=== PATIENT | female | born 1960 | race African-American/Black ===

== ENCOUNTER → 2017-02-03 | Outpatient (CLI) | payer OTHER ==
--- NOTE | 2017-02-03 13:10 | RAD ---
DATE: 02/03/2017 EXAM: DIGITAL SCREEN BILAT W/CAD HISTORY: Screening study. COMPARISON: 01/31/2016 and 01/17/2015 This examination was reviewed with the aid of computer-aided detection. The breast parenchyma shows scattered fibroglandular densities. Breast parenchyma level B. FINDINGS: Digital MLO and CC mammograms of both breasts were obtained. Comparison study is dated 01/31/2016 and 01/17/2015. The breast parenchyma is composed of scattered fibroglandular densities which can obscure a lesion on mammography (breast density code B). No spiculated mass is seen. No malignant appearing calcification or area of architectural distortion is noted. Since the previous examination has been no significant interval change. IMPRESSION: BI-RADS Category 1, negative. There is no mammographic evidence of malignancy. Routine yearly screening mammography is recommended for follow-up. BI-RADS CATEGORY: 1 NEGATIVE RECOMMENDED FOLLOW-UP: 12M 12 MONTH FOLLOW-UP PQRS compliance statement: Patient information was entered into a reminder system with a target due date 01/26/2018 for the next mammogram. Mammography is a sensitive method for finding small breast cancers, but it does not detect them all and is not a substitute for careful clinical examination. A negative mammogram does not negate a clinically suspicious finding and should not result in delay in biopsying a clinically suspicious abnormality. "Our facility is accredited by the [employer] Mammography Program."
== END | disposition home or self-care (01) ==
LOC: MAMMO 12:36
PROVIDERS: ATTEND Internal Medicine
DX: Z12.31 Encounter for screening mammogram for malignant neoplasm of breast (principal)
CPT/HCPCS: G0202; 77067

== ENCOUNTER 2017-10-13 18:02 | Inpatient (IN) | payer OTHER ==
[2017-10-13] MEDS: IV NORMAL SALINE 1000ML BAG 1,000 ML IV ×2 (18:45→22:28)
[2017-10-13] MEDS: MORPHINE SULFATE 4 MG/ML DISP.SYRIN. IV ×2 (18:45→20:30)
[2017-10-13 18:55] LABS: ADD MAN DIFF? NO
[2017-10-13 19:00] LABS: BASO % 1 % (0-3); EOS % 0 % (0-3); HEMATOCRIT 39.5 % (36.0-47.0); HEMOGLOBIN 13.5 g/dL (12.0-15.5); LYMPH # 1.4 x10^3/uL (1.0-4.8); LYMPH % 30 % (24-48); MEAN CORPUSCULAR HEMOGLOBIN 31 pg (25-35); MEAN CORPUSCULAR HGB CONC 34 g/dL (31-37); MEAN CORPUSCULAR VOLUME 90 fL (79-100); MONO # 0.4 x10^3/uL (0.0-1.1); MONO % 8 % (0-9); NEUT # 2.9 x10^3uL (1.8-7.7); NEUT % 61 % (31-73); PLATELET COUNT 321 x10^3/uL (140-400); RED BLOOD COUNT 4.38 x10^6/uL (3.50-5.40); RED CELL DISTRIBUTION WIDTH 13.1 % (11.5-14.5); WHITE BLOOD COUNT 4.7 x10^3/uL (4.0-11.0)
[2017-10-13 19:09] LABS: ANION GAP 9 (6-14); BLOOD UREA NITROGEN 11 mg/dL (7-20); BUN/CREATININE RATIO 16 (6-20); CALCIUM 9.2 mg/dL (8.5-10.1); CARBON DIOXIDE 28 mmol/L (21-32); CHLORIDE 108 mmol/L (98-107); CREATININE 0.7 mg/dL (0.6-1.0); GFR 104.7; GLUCOSE 106 mg/dL (70-99); SODIUM 145 mmol/L (136-145)
[2017-10-13 19:15] LABS: ALBUMIN 3.5 g/dL (3.4-5.0); ALK PHOS 169 U/L (46-116); ALT (SGPT) 465 U/L (14-59); AMYLASE 40 U/L (25-115); AST (SGOT) 524 U/L (15-37); LIPASE 109 U/L (73-393); TOTAL BILIRUBIN 1.3 mg/dL (0.2-1.0)
[2017-10-13] MEDS: IOHEXOL 300 MG/ML 100ML VIAL. IV ×2 (19:15→20:15)
[2017-10-13] MEDS: IOHEXOL 240 MG/ML 50ML VIAL. PO (19:15)
[2017-10-13] MEDS ORDERED: CONTRAST GIVEN MC (19:30)
[2017-10-13] MEDS ORDERED: ONDANSETRON PF 4 MG/2 ML VIAL. IV (21:15)
[2017-10-14 04:15] LABS: ADD MAN DIFF? NO
[2017-10-14 04:19] LABS: BASO % 0 % (0-3); EOS # 0.1 x10^3/uL (0.0-0.7); EOS % 2 % (0-3); HEMATOCRIT 35.4 % (36.0-47.0); HEMOGLOBIN 12.2 g/dL (12.0-15.5); LYMPH # 1.7 x10^3/uL (1.0-4.8); LYMPH % 47 % (24-48); MEAN CORPUSCULAR HEMOGLOBIN 31 pg (25-35); MEAN CORPUSCULAR HGB CONC 34 g/dL (31-37); MEAN CORPUSCULAR VOLUME 90 fL (79-100); MONO # 0.2 x10^3/uL (0.0-1.1); MONO % 7 % (0-9); NEUT # 1.6 x10^3uL (1.8-7.7); NEUT % 44 % (31-73); PLATELET COUNT 266 x10^3/uL (140-400); RED BLOOD COUNT 3.93 x10^6/uL (3.50-5.40); RED CELL DISTRIBUTION WIDTH 13.4 % (11.5-14.5); WHITE BLOOD COUNT 3.6 x10^3/uL (4.0-11.0)
[2017-10-14 04:39] LABS: ANION GAP 8 (6-14); BLOOD UREA NITROGEN 8 mg/dL (7-20); CALCIUM 8.9 mg/dL (8.5-10.1); CARBON DIOXIDE 27 mmol/L (21-32); CHLORIDE 110 mmol/L (98-107); CREATININE 0.7 mg/dL (0.6-1.0); GFR 104.7; GLUCOSE 102 mg/dL (70-99); POTASSIUM 3.8 mmol/L (3.5-5.1); SODIUM 145 mmol/L (136-145)
[2017-10-14] MEDS: MORPHINE SULFATE 4 MG/ML DISP.SYRIN. IV ×2 (05:51→20:33)
[2017-10-14] MEDS: IV NORMAL SALINE 1000ML BAG 1,000 ML IV ×3 (05:53→23:30)
[2017-10-14] MEDS: IV RINGERS,LACTATED 1000ML 1,000 ML IV (09:05)
[2017-10-14] MEDS ORDERED: LIDOCAINE 1% PF 2 ML VIAL. ID (09:15)
[2017-10-14] MEDS ORDERED: ONDANSETRON PF 4 MG/2 ML VIAL. IV ×2 (09:15→23:30)
[2017-10-14] MEDS ORDERED: MORPHINE SULFATE 4 MG/ML DISP.SYRIN. IV (09:15)
[2017-10-14] MEDS ORDERED: fentaNYL PF VIAL 100 MCG/2 ML VIAL IV (09:15)
[2017-10-14] MEDS ORDERED: DEXAMETHASONE SOD PHOS 20 MG/5 ML VIAL. (10:55)
[2017-10-14] MEDS ORDERED: LIDOCAINE 2% PF Vial for OR 5 ML VIAL. (10:55)
[2017-10-14] MEDS ORDERED: PROPOFOL 20 ML IV ×2 (10:55→12:52)
[2017-10-14] MEDS ORDERED: fentaNYL PF VIAL 100 MCG/2 ML VIAL ×3 (10:56→14:30)
[2017-10-14] MEDS ORDERED: MIDAZOLAM HCL/PF 2 MG/2 ML VIAL. (10:56)
[2017-10-14] MEDS ORDERED: ROCURONIUM 50 MG/5 ML VIAL. (10:56)
[2017-10-14] MEDS ORDERED: FAMOTIDINE 20 MG/2 ML VIAL (12:59)
[2017-10-14] MEDS: BUPIVACAINE-EPI 0.25%-1:200000 50 ML VIAL. (13:01)
[2017-10-14] MEDS: IOHEXOL 300 MG/ML 100ML VIAL. (13:03)
[2017-10-14] MEDS: GLUCAGON,HUMAN RECOMBINANT 1 MG/ML VIAL. (13:10)
[2017-10-14] MEDS ORDERED: KETOROLAC 30 MG/ML INJ FOR OR. INJ (13:20)
[2017-10-14] MEDS ORDERED: NEOSTIGMINE METHYLSULFATE 5 MG/5 ML SYRINGE. (13:20)
[2017-10-14] MEDS ORDERED: GLYCOPYRROLATE 1 MG/5 ML VIAL. (13:21)
[2017-10-14] MEDS ORDERED: SEVOFLURANE 31 TO 60 MINUTES. IH (13:30)
[2017-10-14] MEDS: fentaNYL PF VIAL 100 MCG/2 ML VIAL IV ×2 (14:36→17:06)
[2017-10-14] MEDS ORDERED: PROCHLORPERAZINE 10 MG/2 ML VIAL. (14:37)
[2017-10-14] MEDS: PROCHLORPERAZINE 10 MG/2 ML VIAL. IV (14:40)
[2017-10-14] MEDS: PANTOPRAZOLE IV PUSH 40 MG VIAL. IVP (18:02)
[2017-10-15 05:34] LABS: ADD MAN DIFF? NO
[2017-10-15 05:43] LABS: BASO % 0 % (0-3); EOS % 1 % (0-3); HEMATOCRIT 35.6 % (36.0-47.0); HEMOGLOBIN 12.2 g/dL (12.0-15.5); LYMPH # 1.1 x10^3/uL (1.0-4.8); LYMPH % 20 % (24-48); MEAN CORPUSCULAR HEMOGLOBIN 31 pg (25-35); MEAN CORPUSCULAR HGB CONC 34 g/dL (31-37); MEAN CORPUSCULAR VOLUME 90 fL (79-100); MONO # 0.5 x10^3/uL (0.0-1.1); MONO % 9 % (0-9); NEUT % 70 % (31-73); PLATELET COUNT 250 x10^3/uL (140-400); RED BLOOD COUNT 3.94 x10^6/uL (3.50-5.40); RED CELL DISTRIBUTION WIDTH 13.5 % (11.5-14.5); WHITE BLOOD COUNT 5.7 x10^3/uL (4.0-11.0)
[2017-10-15 06:07] LABS: ALBUMIN 2.9 g/dL (3.4-5.0); ALK PHOS 162 U/L (46-116); ALT (SGPT) 263 U/L (14-59); ANION GAP 10 (6-14); AST (SGOT) 132 U/L (15-37); BLOOD UREA NITROGEN 8 mg/dL (7-20); BUN/CREATININE RATIO 10 (6-20); CALCIUM 8.5 mg/dL (8.5-10.1); CARBON DIOXIDE 24 mmol/L (21-32); CHLORIDE 109 mmol/L (98-107); CREATININE 0.8 mg/dL (0.6-1.0); GFR 89.8; GLUCOSE 91 mg/dL (70-99); SODIUM 143 mmol/L (136-145); TOTAL BILIRUBIN 5.7 mg/dL (0.2-1.0); TOTAL PROTEIN 5.8 g/dL (6.4-8.2)
[2017-10-15 06:11] LABS: INR 1.1 (0.8-1.1); PROTHROMBIN TIME PATIENT 13.9 SEC (11.7-14.0)
[2017-10-15] MEDS: PANTOPRAZOLE IV PUSH 40 MG VIAL. IVP (06:21)
[2017-10-15] MEDS: MORPHINE SULFATE 4 MG/ML DISP.SYRIN. IV ×3 (08:52→22:44)
[2017-10-15] MEDS ORDERED: LIDOCAINE 1% PF 2 ML VIAL. ID (09:15)
[2017-10-15] MEDS ORDERED: MORPHINE SULFATE 2 MG/ML DISP.SYRIN. IV (09:15)
[2017-10-15] MEDS ORDERED: PROCHLORPERAZINE 10 MG/2 ML VIAL. IV (09:15)
[2017-10-15] MEDS ORDERED: ONDANSETRON PF 4 MG/2 ML VIAL. IV (09:15)
[2017-10-15] MEDS ORDERED: fentaNYL PF VIAL 100 MCG/2 ML VIAL IV ×2 (09:15)
[2017-10-15] MEDS ORDERED: MIDAZOLAM HCL/PF 5 MG/5 ML VIAL. (16:50)
[2017-10-15] MEDS ORDERED: diphenhydrAMINE 50 MG/ML VIAL (16:50)
[2017-10-15] MEDS ORDERED: MEPERIDINE PF 25 MG/ML VIAL. (16:50)
[2017-10-15] MEDS: diphenhydrAMINE 50 MG/ML VIAL IV (16:59)
[2017-10-15] MEDS ORDERED: IOHEXOL 300 MG/ML 100ML VIAL. (16:59)
[2017-10-15] MEDS: IV RINGERS,LACTATED 1000ML 1,000 ML IV (17:00)
[2017-10-15] MEDS: MIDAZOLAM HCL/PF 5 MG/5 ML VIAL. IV ×4 (17:02→17:26)
[2017-10-15] MEDS: MEPERIDINE PF 25 MG/ML VIAL. IV ×4 (17:02→17:26)
[2017-10-15] MEDS: IOHEXOL 300 MG/ML 100ML VIAL. IV (17:15)
[2017-10-16 04:43] LABS: ALBUMIN 2.9 g/dL (3.4-5.0); ALK PHOS 172 U/L (46-116); ALT (SGPT) 195 U/L (14-59); AMYLASE 83 U/L (25-115); ANION GAP 9 (6-14); AST (SGOT) 81 U/L (15-37); BLOOD UREA NITROGEN 7 mg/dL (7-20); BUN/CREATININE RATIO 10 (6-20); CALCIUM 8.6 mg/dL (8.5-10.1); CARBON DIOXIDE 26 mmol/L (21-32); CHLORIDE 106 mmol/L (98-107); CREATININE 0.7 mg/dL (0.6-1.0); GFR 104.7; GLUCOSE 108 mg/dL (70-99); LIPASE 334 U/L (73-393); POTASSIUM 3.7 mmol/L (3.5-5.1); SODIUM 141 mmol/L (136-145); TOTAL BILIRUBIN 5.4 mg/dL (0.2-1.0); TOTAL PROTEIN 5.8 g/dL (6.4-8.2)
[2017-10-16] MEDS: PANTOPRAZOLE IV PUSH 40 MG VIAL. IVP (08:00)
== END 2017-10-16 13:50 | disposition home or self-care (01) | DRG 419 ==
LOC: 4 NORTH 22:06 → ER 18:02 → 4 NORTH 21:00
PROC: 0FT44ZZ Resection of Gallbladder, Percutaneous Endoscopic Approach (ICD-10-PCS; principal; 2017-10-14 12:27)
PROC: BF141ZZ Fluoroscopy of Gallbladder, Bile Ducts and Pancreatic Ducts using Low Osmolar Contrast (ICD-10-PCS; 2017-10-14 12:27)
PROC: 0FJB8ZZ Inspection of Hepatobiliary Duct, Via Natural or Artificial Opening Endoscopic (ICD-10-PCS; 2017-10-14 12:27)
PROC: 0FC98ZZ Extirpation of Matter from Common Bile Duct, Via Natural or Artificial Opening Endoscopic (ICD-10-PCS; 2017-10-14 12:27)
DX: K80.62 Calculus of gallbladder and bile duct with acute cholecystitis without obstruction (principal); N28.1 Cyst of kidney, acquired; K21.9 Gastro-esophageal reflux disease without esophagitis; M19.90 Unspecified osteoarthritis, unspecified site; E66.9 Obesity, unspecified; Z98.51 Tubal ligation status; Z88.8 Allergy status to other drugs, medicaments and biological substances; Z83.3 Family history of diabetes mellitus; Z68.33 Body mass index [BMI] 33.0-33.9, adult
CPT/HCPCS: 36415; 74177; 74300; 74328; 80048; 80053; 82150; 83690; 85025; 85610; 88304; 96361; 96374; 99285; 99285-25; C1726; C1757; C9113; J0690; J0780; J1100; J1200; J1610; J1885; J2175; J2250; J2270; J2704; J2710; J3010; J3490; J7030; J7120; Q9967; S0028

== ENCOUNTER → 2018-02-05 | Outpatient (CLI) | payer OTHER ==
[2017-10-16 11:00] VITALS: BP 135/78
[~2018-02-05] MED LIST: OMEP20TA63 PO; OXYC30TA PO
--- NOTE | 2018-02-05 12:58 | RAD ---
DATE: 02/05/2018 EXAM: DIGITAL SCREEN BILAT W/CAD HISTORY: Routine screening COMPARISON: 02/03/2017 This study was interpreted with the benefit of Computerized Aided Detection (CAD). The breast parenchyma shows scattered fibroglandular densities. Breast parenchyma level B. FINDINGS: No new or enlarging breast densities are seen. No suspicious microcalcifications are evident. IMPRESSION: Stable mammograms without evidence of malignancy. BI-RADS CATEGORY: 1 NEGATIVE RECOMMENDED FOLLOW-UP: 12M 12 MONTH FOLLOW-UP PQRS compliance statement: Patient information was entered into a reminder system with a target due date for the next mammogram. Mammography is a sensitive method for finding small breast cancers, but it does not detect them all and is not a substitute for careful clinical examination. A negative mammogram does not negate a clinically suspicious finding and should not result in delay in biopsying a clinically suspicious abnormality. "Our facility is accredited by the [employer] Mammography [employer]."
== END | disposition home or self-care (01) ==
LOC: MAMMO 10:45
PROVIDERS: ATTEND Internal Medicine
DX: Z12.31 Encounter for screening mammogram for malignant neoplasm of breast (principal); K21.9 Gastro-esophageal reflux disease without esophagitis; Z88.8 Allergy status to other drugs, medicaments and biological substances; Z83.3 Family history of diabetes mellitus; Z68.33 Body mass index [BMI] 33.0-33.9, adult
CPT/HCPCS: 77067

== ENCOUNTER → 2019-02-09 | Outpatient (CLI) | payer OTHER ==
[2017-10-16 11:00] VITALS: BP 135/78
[~2019-02-09] MED LIST changes: -OXYC30TA PO; +OXYC30TA3 PO
--- NOTE | 2019-02-09 15:15 | RAD ---
DATE: 02/09/2019 EXAM: DIGITAL SCREEN BILAT W/CAD HISTORY: History of benign left breast biopsy 1989. Asymptomatic screening mammogram. COMPARISON: Prior mammogram from 02/05/2018, 02/03/2017, 01/18/2016 This study was interpreted with the benefit of Computerized Aided Detection (CAD). Breast Density: SCATTERED The breast parenchyma shows scattered fibroglandular densities. Breast parenchyma level B. FINDINGS: 2-D CC and MLO views of each breast were obtained. Right breast: There are no suspicious microcalcifications, masses or areas of architectural distortion. Left breast: There are no suspicious medical calcifications, masses or areas of architectural distortion. Bilateral mammograms compared to prior examinations and appears unchanged. IMPRESSION: Negative bilateral mammogram. BI-RADS CATEGORY: 1 NEGATIVE RECOMMENDED FOLLOW-UP: 12M 12 MONTH FOLLOW-UP PQRS compliance statement: Patient information was entered into a reminder system with a target due date 02/10/2020 for the next mammogram. Mammography is a sensitive method for finding small breast cancers, but it does not detect them all and is not a substitute for careful clinical examination. A negative mammogram does not negate a clinically suspicious finding and should not result in delay in biopsying a clinically suspicious abnormality. "Our facility is accredited by the [employer] Mammography Program."
== END | disposition home or self-care (01) ==
LOC: MAMMO 12:10
PROVIDERS: ATTEND Family Medicine
DX: Z12.31 Encounter for screening mammogram for malignant neoplasm of breast (principal); N64.89 Other specified disorders of breast
CPT/HCPCS: 77067

== ENCOUNTER → 2019-07-12 | Outpatient (CLI) | payer OTHER ==
[2017-10-16 11:00] VITALS: BP 135/78
[~2019-07-12] MED LIST changes: +ACET500T68 PO; +CHOL200078 PO; +CYAN25008 PO; +MULT-647 PO; +MULT1TAB52 PO; +NAPR220T70 PO
[2019-07-12 09:33] LABS: BASO % 0 % (0-3); EOS # 0.1 x10^3/uL (0.0-0.7); EOS % 2 % (0-3); HEMOGLOBIN 13.1 g/dL (12.0-15.5); LYMPH # 1.8 x10^3/uL (1.0-4.8); LYMPH % 32 % (24-48); MEAN CORPUSCULAR HEMOGLOBIN 31 pg (25-35); MEAN CORPUSCULAR HGB CONC 34 g/dL (31-37); MEAN CORPUSCULAR VOLUME 91 fL (79-100); MONO # 0.3 x10^3/uL (0.0-1.1); MONO % 5 % (0-9); NEUT # 3.5 x10^3/uL (1.8-7.7); NEUT % 62 % (31-73); PLATELET COUNT 332 x10^3/uL (140-400); RED BLOOD COUNT 4.27 x10^6/uL (3.50-5.40); RED CELL DISTRIBUTION WIDTH 14.7 % (11.5-14.5); WHITE BLOOD COUNT 5.7 x10^3/uL (4.0-11.0)
[2019-07-12 09:47] LABS: PROTHROMBIN TIME PATIENT 12.7 SEC (11.7-14.0)
[2019-07-12 09:56] LABS: CALCIUM 9.6 mg/dL (8.5-10.1); CREATININE 0.7 mg/dL (0.6-1.0)
--- NOTE | 2019-07-12 13:22 | EKG ---
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
--- NOTE | 2019-07-12 15:43 | RAD ---
AP and Lateral Views of the Chest 07/12/2019 9:09 AM Indication: Preoperative Comparison: None Findings: There is no focal consolidation or infiltrate identified. The cardiomediastinal silhouette is within normal limits. There is no evidence of pneumothorax or pleural effusion. No acute osseous abnormalities are identified. Prior cholecystectomy noted. Impression: No evidence of acute cardiopulmonary process. Electronically signed by: Ajit Casas MD (07/12/2019 3:40 PM) [id number]
== END | disposition home or self-care (01) ==
LOC: SURGPAT 12:58
PROVIDERS: ATTEND Orthopaedic Surgery
DX: Z01.818 Encounter for other preprocedural examination (principal); R94.31 Abnormal electrocardiogram [ECG] [EKG]; M16.12 Unilateral primary osteoarthritis, left hip
CPT/HCPCS: 36415; 71046; 80048; 82040; 82306; 85025; 85610; 85651; 85730; 87641; 93005

== ENCOUNTER → 2019-12-08 | Outpatient (CLI) | payer OTHER ==
[2019-07-30 06:00] VITALS: BP 103/61
[~2019-12-08] MED LIST changes: +ACET325T9 PO; +ASCO500C PO; +LACT1CAP2 PO; +MILK1TAB PO; +MULT-445 PO; -MULT1TAB52 PO; +OXYC5CAP PO; +WARF5TAB2 PO; +WARF7.5T48 PO
[2019-12-08 13:57] LABS: BASO % 1 % (0-3); EOS # 0.1 x10^3/uL (0.0-0.7); EOS % 1 % (0-3); HEMATOCRIT 38.5 % (36.0-47.0); HEMOGLOBIN 12.9 g/dL (12.0-15.5); LYMPH # 2.2 x10^3/uL (1.0-4.8); LYMPH % 48 % (24-48); MEAN CORPUSCULAR HEMOGLOBIN 30 pg (25-35); MEAN CORPUSCULAR HGB CONC 34 g/dL (31-37); MEAN CORPUSCULAR VOLUME 90 fL (79-100); MONO # 0.3 x10^3/uL (0.0-1.1); MONO % 6 % (0-9); NEUT % 43 % (31-73); PLATELET COUNT 309 x10^3/uL (140-400); RED BLOOD COUNT 4.26 x10^6/uL (3.50-5.40); RED CELL DISTRIBUTION WIDTH 15.6 % (11.5-14.5); WHITE BLOOD COUNT 4.7 x10^3/uL (4.0-11.0)
[2019-12-08 14:00] LABS: ALBUMIN 3.9 g/dL (3.4-5.0); C-REACTIVE PROTEIN 2.9 mg/L (0-3.3); CALCIUM 9.1 mg/dL (8.5-10.1); CREATININE 0.7 mg/dL (0.6-1.0); GFR 103.6; POTASSIUM 4.1 mmol/L (3.5-5.1)
[2019-12-08 14:06] LABS: PROTHROMBIN TIME PATIENT 12.9 SEC (11.7-14.0)
[2019-12-09 02:08] LABS: HEMOGLOBIN A1C 5.5 % (4.8-5.6)
== END | disposition home or self-care (01) ==
LOC: SURGPAT 12:49
PROVIDERS: ATTEND Orthopaedic Surgery
DX: Z01.818 Encounter for other preprocedural examination (principal); Z11.59 Encounter for screening for other viral diseases; M16.11 Unilateral primary osteoarthritis, right hip
CPT/HCPCS: 36415; 80048; 82040; 82306; 83036; 85025; 85610; 85730; 86140; 87641; U0003

== ENCOUNTER 2019-12-14 07:56 | Observation (INO) | payer OTHER ==
[~2019-12-14] VITALS: Ht 162.6 cm; Wt 84.4 kg
[2019-12-14] VITALS (8 sets, daily range): BP systolic 106–123; BP diastolic 55–69
[~2019-12-14 07:56] MED LIST changes: +DEXAMETHASONE SOD PHOS 20 MG/5 ML VIAL. ONE; +GABAPENTIN 300 MG CAPSULE. PO PRN; +IV RINGERS,LACTATED 1000ML 1,000 ML IV SCH; +LIDOCAINE 2% PF 5 ML VIAL. ONE; +MELOXICAM 7.5 MG TABLET PO PRN; +MORPHINE SULFATE 5 MG, KETOROLAC 30MG VIAL 30 MG, ROPIVacaine 0.5% PF 60 ML, EPINEPHrin... INT ART ONE; +ONDANSETRON PF 4 MG/2 ML VIAL. IV PRN; +ONDANSETRON PF 4 MG/2 ML VIAL. ONE; +PROCHLORPERAZINE 10 MG/2 ML VIAL. IV PRN; +PROPOFOL 10 MG/ML (20ML) VIAL. IV ONE; +ROCURONIUM 50 MG/5 ML VIAL. ONE; +TRANEXAMIC ACID 1,000 MG in IV NORMAL SALINE 50ML 50 ML INJ ONE; -WARF7.5T48 PO
[2019-12-14] MEDS ORDERED: TRANEXAMIC ACID 1,000 MG in IV NORMAL SALINE 50ML 50 ML INJ ONE (08:00)
[2019-12-14] MEDS ORDERED: ACETAMINOPHEN 500 MG TABLET PO ONE (08:30)
[2019-12-14 08:53] LABS: PROTHROMBIN TIME PATIENT 12.3 SEC (11.7-14.0)
[2019-12-14] MEDS ORDERED: fentaNYL PF VIAL 250 MCG/5 ML VIAL ONE (09:28)
[2019-12-14] MEDS ORDERED: SEVOFLURANE > 120 MINUTES. IH ONE (09:28)
[2019-12-14] MEDS: IV NORMAL SALINE 1000ML BAG 1,000 ML IV SCH (10:05)
[2019-12-14] MEDS ORDERED: diphenhydrAMINE 50 MG/ML VIAL IVP PRN (10:15)
[2019-12-14] MEDS ORDERED: fentaNYL PF VIAL 100 MCG/2 ML VIAL IVP PRN (10:15)
[2019-12-14] MEDS ORDERED: DEXTROSE 50% 25 GM / 50ML DISP.SYRIN. IV PRN (10:15)
[2019-12-14] MEDS ORDERED: MORPHINE SULFATE 2 MG/ML VIAL. IVP PRN (10:15)
[2019-12-14] MEDS ORDERED: PROCHLORPERAZINE 5 MG TABLET. PO PRN (10:15)
[2019-12-14] MEDS ORDERED: 0.9 % SODIUM CHLORIDE 10 ML DISP.SYRIN. IV PRN (10:15)
[2019-12-14] MEDS ORDERED: ZOLPIDEM 5 MG TABLET. PO PRN (10:15)
[2019-12-14] MEDS ORDERED: CALCIUM CARBONATE 500 MG TAB.CHEW PO PRN (10:15)
[2019-12-14] MEDS ORDERED: NEOSTIGMINE METHYLSULFATE 5 MG/5 ML SYRINGE. ONE (11:08)
[2019-12-14] MEDS ORDERED: GLYCOPYRROLATE 1 MG/5 ML VIAL. ONE (11:08)
--- NOTE | 2019-12-14 11:34 | PDOC4 ---
Operative Note Operative Note Date of surgery: 12/14/2019 Preoperative diagnosis: Degenerative joint disease right hip Postoperative diagnosis: Same Operative procedure: Right total hip arthroplasty Surgeon: Krishna Disc Pad Grinding Machine Feeder: Kalpana snyder Anesthesia: General Estimated blood loss 200 cc Complications: None Drains: Hemovac drain and intra-articular catheter right hip Operative indications: Please see my dictated orthopedic clinic note for detailed operative indications and note that we had covered the possible risk factors including premature wear or loosening infection nerve or blood vessel damage instability medical or other anesthetic complications among others all her questions were answered she wants to proceed with surgical evaluation and treatment having given informed consent Operative text: Patient was identified procedure verified patient placed in the supine position on the operating table. After adequate amounts of general anesthesia were administered she was placed in the decubitus position using the Stulberg hip positioner and positioned right side up with all bony prominences well-padded. The right hip was then prepped and draped in standard sterile fashion and after timeout was performed patient procedure identified and verified a curvilinear incision was made over the right hip greater trochanter dissection carried out down to the iliotibial band and gluteal fascia which were split in line with their fibers a Charnley retractor was placed external rotators were divided from their insertion and hip capsule was split in a T fashion hip was dislocated and cut using the cutting guide to establish a templated calcar cut the femoral head was denuded of cartilage completely the acetabulum was exposed and contents of the fovea and labrum were degraded and excised. Reaming was carried out up to a size 55 with a 56 cluster hole stick- type coated [employer] hemispherical cup impacted into place in proper version using the alignment guide and a single fixation screw placed superiorly. A 40 mm inner diameter standard liner was impacted into place and the femur was prepared with a box osteotome and reaming broaching carried out up to a size 13 where a -4 trial overall restored her leg length offset and gave her excellent stability with full range of motion. Trial stem components were removed irrigation carried out normal saline solution and a standard offset synergy porous coated size 13 femoral stem was impacted into place in proper version and equivalent trialing carried out and therefore a Oxinium 40 mm head with -4 neck length was impacted to engage the Contreras taper and reduced found to be stable to about 70 degrees internal rotation at 90 degrees hip flexion's irrigation again carried out normal saline solution hip capsule and external rotators were repaired with #5 Ethibond suture Hemovac drain and pain catheter were placed pain catheter mixture was injected throughout the joint and fascial closure accomplished with #2 Ethibond suture in interrupted fashion reinforced with #1 PDS strata fix suture subcutaneous closure with buried Vicryl and skin closure with subcuticular strata fix Monocryl. Jace dressing and Acticoat were placed patient was returned to recovery room in stable condition having tolerated the procedure well. Kalpana omalley assist was present for the procedure and assisted in the patient positioning prepping draping retraction closure and dressings PABLO MICHELLE MD Dec 14, 2019 11:34
[2019-12-14] MEDS ORDERED: MORPHINE SULFATE 4 MG/ML VIAL. IV PRN (11:45)
[2019-12-14] MEDS ORDERED: PROCHLORPERAZINE 10 MG/2 ML VIAL. IV PRN (11:45)
[2019-12-14] MEDS ORDERED: fentaNYL PF VIAL 100 MCG/2 ML VIAL IV PRN (11:45)
[2019-12-14] MEDS ORDERED: MORPHINE SULFATE 2 MG/ML VIAL. IV PRN (11:45)
[2019-12-14] MEDS: ONDANSETRON PF 4 MG/2 ML VIAL. IVP SCH ×2 (12:00→17:03)
[2019-12-14] MEDS: ONDANSETRON ODT 4 MG TAB.RAPDIS. PO SCH ×2 (12:00→17:50)
[2019-12-14] MEDS: fentaNYL PF VIAL 100 MCG/2 ML VIAL IV PRN ×2 (12:03→12:06)
[2019-12-14] MEDS: HYDROmorphone 2 MG/ML VIAL IV PRN ×2 (12:31→13:06)
--- NOTE | 2019-12-14 13:25 | NUR ---
Arrived to unit by bed from PACU. Very drowsy awakens but falls back to sleep. Unable to carry conversation without falling asleep. Right hip dressing d/i with SOO, IAC and Hemovac drain intact. IVF's intact and infusing. GRACIA's on with TOREY on right foot and SCD on left leg. Placed O2 at 2l per n/c due O2 Sats ranging 85-88%. Side rails up x's 2 with call light in reach. Cont. monitor.
--- NOTE | 2019-12-14 13:37 | RAD ---
Right hip 2 views with one view pelvis. HISTORY: Post right hip arthroplasty Single view was taken of the pelvis. There is no pelvic fracture. There is a total joint prosthesis on the left. AP and lateral views were taken of the right hip. There is a total joint prosthesis in place. There is no acute fracture. There is a drainage tube present. IMPRESSION: 1. Operative changes from right hip arthroplasty. Electronically signed by: Castillo Varghese MD (12/14/2019 1:34 PM) [facility]
[2019-12-14] MEDS ORDERED: WARFARIN 7.5 MG TABLET. PO ONE (16:00)
[2019-12-14] MEDS: FERROUS SULFATE 325 MG TABLET. PO SCH (17:00)
[2019-12-14] MEDS: KETOROLAC 30MG VIAL 30 MG, BUPIVACAINE MPF 0.25% 20 ML, EPINEPHrine 0.5 MG in TOTAL VOL... INT ART SCH (17:45)
[2019-12-14] MEDS: oxyCODONE IR 5 MG TABLET PO PRN (22:42)
[2019-12-15] MEDS: oxyCODONE IR 5 MG TABLET PO PRN ×3 (02:11→11:06)
[2019-12-15 02:46] VITALS: BP 113/54
[2019-12-15] MEDS: KETOROLAC 30MG VIAL 30 MG, BUPIVACAINE MPF 0.25% 20 ML, EPINEPHrine 0.5 MG in TOTAL VOL... INT ART SCH (04:58)
[2019-12-15 05:17] LABS: PROTHROMBIN TIME PATIENT 14.9 SEC (11.7-14.0)
[2019-12-15] MEDS: ONDANSETRON PF 4 MG/2 ML VIAL. IVP SCH ×2 (06:00)
[2019-12-15] MEDS ORDERED: MAGNESIUM HYDROXIDE 2,400 MG/30 ML ORAL.SUSP. PO PRN (06:00)
[2019-12-15] MEDS ORDERED: GABAPENTIN 100 MG CAPSULE. PO SCH (06:00)
[2019-12-15] MEDS: ONDANSETRON ODT 4 MG TAB.RAPDIS. PO SCH ×2 (06:00)
[2019-12-15] MEDS: traMADol 50 MG TABLET PO SCH ×3 (06:36→17:18)
--- NOTE | 2019-12-15 07:00 | NUR ---
awake and up in recliner. states her pain is a "6" requesting pain medication. ice applied to right hip area. she has good sensation, motion and pulses bilateral lower extremities
[2019-12-15 07:04] VITALS: BP 99/55
[2019-12-15] MEDS: ONDANSETRON ODT 4 MG TAB.RAPDIS. PO PRN ×2 (07:04→11:05)
--- NOTE | 2019-12-15 07:06 | NUR ---
Temp 99.4, encouraged IS use. Ambulated to toilet then recliner. Ultram started per protocol.
[2019-12-15] MEDS: SENNOSIDES/DOCUSATE 8.6/50MG TABLET. PO SCH (07:55)
[2019-12-15] MEDS: MELOXICAM 7.5 MG TABLET PO SCH (07:55)
[2019-12-15] MEDS: FERROUS SULFATE 325 MG TABLET. PO SCH ×2 (07:55→17:18)
[2019-12-15] MEDS: MULTIVITAMIN with MINERAL TABLET. PO SCH (07:55)
[2019-12-15] MEDS: ACETAMINOPHEN 500 MG TABLET PO SCH ×3 (07:55→20:13)
--- NOTE | 2019-12-15 08:00 | NUR ---
still states that her pain is a 6. refused other pain medication at this time. will increase oxy ir to 10 instead of 5
[2019-12-15] MEDS: IV NORMAL SALINE 1000ML BAG 1,000 ML IV SCH (10:05)
[2019-12-15 11:06] VITALS: BP 109/58
[2019-12-15] MEDS ORDERED: ONDANSETRON PF 4 MG/2 ML VIAL. IVP PRN (12:00)
--- NOTE | 2019-12-15 14:44 | NUR ---
Zofran repeated; queasy stomach. medicated with oxy 10 mg and tolerated 2nd session of therapy better. original surgical dressing removed. Hemovac and IAC (blue tip intact) removed.
--- NOTE | 2019-12-15 15:07 | NUR ---
Pharmacy Vancomycin Dosing Note S:Consulted to monitor and dose vancomycin started . O:MICHELLE HDZ is a 59 year old F with . Height: 5 feet, 4 inches Weight: 84.985045 kg [place] Body Weight: Adjusted Body Weight: Dosing Weight: Pharmacy Warfarin Dosing Note S:Pharmacy consulted to assist with anticoagulation therapy started 12/14/19 with target INR: 1.6 - 2.5 O:MICHELLE HDZ is a 59 year old F with ASAD LABS: Last INR: 1.2 Last HGB: 10.9 Last HCT: Last PLT: Last dose of 7.5 mg given on 12/14/19 at 1700 Previous Regimen: Vitamin K given: N Drug Interaction Changes: Ongoing Drug Interactions: MELOXICAM A:INR of 1.2 is below desired range. Target range for this patient is: 1.6 - 2.5 P: Warfarin dose: 5 mg Today at 1600 Bridge Therapy: None Next INR due IN AM Pharmacy anticoagulation service will continue to follow. MAX MERCADO RPH, 12/15/19 1507 Other Antibiotics: LABS: Last BUN: Last Creatinine: Creatinine Clearance: mL/min Last WBC: Last Procalcitonin: Tmax (past 24 hours): Microbiology: I/O: Drug Levels: Last level: on at Last dose given at Vancomycin Dosing: Loading Dose: x1 Dosing Weight: Target Trough: A: Based on: [] P: 1. [g RX.ACTION] Vancomycin IV 2. Follow up level on at 3. Pharmacy will continue to monitor, follow and adjust therapy as needed. MAX MERCADO RPH, 12/15/19 0113
[2019-12-15] MEDS ORDERED: BISACODYL 10 MG SUPP.RECT. PR PRN (16:00)
[2019-12-15] MEDS ORDERED: WARFARIN 5 MG TABLET. PO ONE (16:00)
[2019-12-15 18:16] VITALS: BP 104/58
--- NOTE | 2019-12-15 20:51 | PDOC ---
PROGRESS NOTES Subjective Subjective Problems overnight: Some muscle spasm in the buttock area but getting up and around well Objective Vital Signs Vital Signs Date Time Temp Pulse Resp B/P (MAP) Pulse Ox O2 Delivery O2 Flow Rate FiO2 12/15/19 20:07 Room Air 12/15/19 18:16 98.3 83 16 104/58 (73) 99 98.3 12/14/19 20:30 2.0 Physical Exam Jace dressing intact leg lengths equal distal neurovascular status intact Hemovac and pain catheter intact Labs Laboratory Tests Test 12/14/19 08:30 12/15/19 04:50 Prothrombin Time 12.3 SEC (11.7-14.0) 14.9 SEC (11.7-14.0) Prothromb Time International Ratio 1.0 (0.8-1.1) 1.2 (0.8-1.1) Activated Partial Thromboplast Time 29 SEC (24-38) Hemoglobin 10.9 g/dL (12.0-15.5) Laboratory Tests Test 12/15/19 04:50 Hemoglobin 10.9 g/dL (12.0-15.5) Prothrombin Time 14.9 SEC (11.7-14.0) Prothromb Time International Ratio 1.2 (0.8-1.1) Imaging Postop x-rays show good placement of total hip arthroplasty components and sizing with equal leg lengths and offset to contralateral hip Assessment Assessment POD#1 right total hip arthroplasty Plan Plan of Care Continue mobilize weightbearing as tolerated with standard total hip precautions Coumadin anticoagulation Justicifation of Admission Dx: Justifications for Admission: Justification of Admission Dx: Yes (Additional physical therapy for safe ambulation and transfers and pain control) PABLO MICHELLE MD Dec 15, 2019 20:51
[2019-12-15 23:00] VITALS: BP 103/63
[2019-12-16] MEDS: traMADol 50 MG TABLET PO SCH ×4 (00:12→17:26)
[2019-12-16] MEDS: ACETAMINOPHEN 500 MG TABLET PO SCH ×3 (02:50→13:54)
[2019-12-16] MEDS: oxyCODONE IR 5 MG TABLET PO PRN ×4 (02:50→17:21)
[2019-12-16 04:41] LABS: HEMATOCRIT 29.2 % (36.0-47.0); HEMOGLOBIN 10.1 g/dL (12.0-15.5)
[2019-12-16 04:45] LABS: PROTHROMBIN TIME PATIENT 15.9 SEC (11.7-14.0)
[2019-12-16 06:00] VITALS: BP 92/54
--- NOTE | 2019-12-16 08:00 | NUR ---
Laura is doing fair. continues to have fair appetite; no nausea this am. she is drinking fluids well. rating her pain 3-4
[2019-12-16] MEDS: MELOXICAM 7.5 MG TABLET PO SCH (08:19)
[2019-12-16] MEDS: POLYETHYLENE GLYCOL 3350 17 GM PACKET. PO PRN ×2 (08:19→13:54)
[2019-12-16] MEDS: MULTIVITAMIN with MINERAL TABLET. PO SCH (08:19)
[2019-12-16] MEDS: SENNOSIDES/DOCUSATE 8.6/50MG TABLET. PO SCH (08:20)
[2019-12-16] MEDS: FERROUS SULFATE 325 MG TABLET. PO SCH ×2 (08:20→17:00)
[2019-12-16] MEDS ORDERED: OXYC5CAP PO (09:48)
--- NOTE | 2019-12-16 09:53 | SNU/HH DC ---
DISCHARGE WITH HOME HEALTH DISCHARGE INFORMATION: Condition on Discharge: Stable CODE STATUS: Code Status: Full HOME HEALTH: Face to Face: I certify this patient is under my care and that I, or a nurse practitioner or physician's assistant boys track coach working with me, had a face to face encounter that meets the physician face to face encounter requirements with this patient on [12/16/19]. Medical Complications: S/P Joint Replacement RN For Eval/Treatment: No Physical Therapy For: Evalulation/Treatment Pt Meets Homebound Status: Limited distance walking POST DISCHARGE ORDERS: Activity Instructions for Disc: Progressive ambulation (Avoid extreme hip bending, flexion and any internal rotation) Weight Bearing Status after Di: As tolerated DIET AFTER DISCHARGE: Regular Wound/Incision Care: Ice to area for comfort, Do not change dressing (Maintain everette dressing call if leaking or saturated, remove suction unit after 1 week when it stops and tape over the suction at top of dressing) FOLLOW-UP: Follow up with: Dr. Keller 2 weeks postoperative Warfarin Follow UP: As directed by [facility] anticoagulation clinic TREATMENT/EQUIPMENT ORDERS: Adaptive Equipment Issued: None, Walker CERTIFICATION STATEMENT: Certification Statement: Certification Statement: Based on the above finding, I certify that this patient is confined to the home and needs intermittent assisted care, physical therapy and/or speech therapy, or continues to need occupational therapy.~ This patient is under my care, and I have initiated the establishment of the plan of care.~ This patient will be followed by myself or a community physician who will periodically review the plan of care. Home Meds Reported Medications Lactobacillus Acidophilus (ACIDOPHILUS) 1 Each Capsule, 1 CAP PO DAILY for gi health for 14 Days, #14 CAP 0 Refills 12/08/19 Milk Thistle/Nac/Dandel/Turmer (Liver Complex Tablet) 1 Each Tablet, 1 EACH PO DAILY for supplement, TAB 12/08/19 Ascorbic Acid (VITAMIN C) 500 Mg Capsule.er, 1000 MG PO DAILY for vitamin, CAP.SR 12/08/19 Acetaminophen (TYLENOL) 325 Mg Tablet, 1-2 TAB PO QID for pain for 30 Days, #60 TAB 2 Refills 07/30/19 Multivits-Min/Folic Acid/Biot (Hair, Skin & Nails Caplet) 1 Each Tablet, 1 EACH PO DAILY for SUPPLEMENT, TAB 07/14/19 Cyanocobalamin (Vitamin B-12) (Vitamin B12) 2,500 Mcg Tablet, 1000 MCG PO DAILY for SUPPLEMENT, TAB 07/14/19 Cholecalciferol (Vitamin D3) (Vitamin D3) 2,000 Unit Tab.chew, 1000 UNIT PO DAILY for SUPPLEMENT, TAB.CHEW 07/14/19 Multivitamin (MULTIVITAMINS) 1 Each Tablet, 1 EACH PO DAILY for SUPPLEMENT, TAB 07/14/19 PABLO KELLER MD Dec 16, 2019 09:53
--- NOTE | 2019-12-16 10:00 | NUR ---
reviewed orally her discharge orders. reviewed restrictions to activities of living, incisional care and how long she will be on Coumadin and weekly lab draws. verbalized understanding
[2019-12-16] MEDS: IV NORMAL SALINE 1000ML BAG 1,000 ML IV SCH (10:05)
--- NOTE | 2019-12-16 10:37 | NUR ---
Pharmacy Warfarin Dosing Note S:Pharmacy consulted to assist with anticoagulation therapy started 12/14/19 with target INR: 1.6 - 2.5 O:MICHELLE HDZ is a 59 year old F with ASAD LABS: Last INR: 1.3 Last HGB: 10.1 Last HCT: 29.2 Last PLT: - Last dose of 5 mg given on 12/15/19 at 1718 Previous Regimen: Vitamin K given: N Drug Interaction Changes: Ongoing Drug Interactions: MELOXICAM A:INR of 1.3 is below desired range. Target range for this patient is: 1.6 - 2.5 P: Warfarin dose: 7.5 mg Prior to Discharge and daily Bridge Therapy: None Next INR due Tuesday 12/19 to be checked by home health Pharmacy anticoagulation service will continue to follow. Beth Benavides RPH, 12/16/19 1037
[2019-12-16] MEDS ORDERED: WARF7.5T48 PO (10:39)
[2019-12-16] MEDS ORDERED: WARFARIN 7.5 MG TABLET. PO ONE (14:00)
[2019-12-16 14:11] VITALS: BP 115/62
--- NOTE | 2019-12-16 14:32 | NUR ---
reviewed written discharge instructions with Laura. script for oxycodone given. verbalized understanding restrictions to activities of daily living such as driving hip precautions and bathing. she has a follow up dr. Keller and given time. eunice will pick her up around 5 this evening
--- NOTE | 2019-12-16 15:08 | PATHOLOGY ---
[facility] Accession Number: [id number] . 01 Material submitted: . femur - RIGHT FEMORAL HEAD. Modifiers: right, head . 01 Clinical history: . OA . 02 Diagnosis: Femoral head, right total hip arthroplasty: - Advanced degenerative arthritis, with focal subarticular cystic degeneration and fibrosis. (JPM:paulo; 12/16/2019) QMS 12/16/2019 1257 Local . 02 Electronically signed: . Salvador Lao MD, Pathologist NPI- [id number] . 01 Gross description: . The specimen is received in formalin, labeled "Laura Foreman, right femoral head" and consists of a femoral head with attached neck measuring 5.3 x 4.7 x 4.6 cm. The articular surface is pink-negron and extensively roughened with focal eburnation. Osteophytes are present. Section reveals yellow to pink cut surfaces with a 0.5 cm cystic structure. Dredge Hand sections are submitted in A1-A2 following the calcification. (SDY; 12/14/2019) SYU/SYU 12/14/2019 1746 Local . 02 Pathologist provided ICD-10: M16.11 . 02 CPT . 585213, 276371 Specimen Comment: A courtesy copy of this report has been sent to [phone], [phone] Specimen Comment: [id number] Specimen Comment: Report sent to / DR TATE Performed at: 01 [facility] [address], [place] [id number] MD Emeka Sherman MD Phone: [phone] Performed at: 02 [facility] [address] [place], [place] [id number] MD Salvador Lao MD Phone: [phone]
--- NOTE | 2019-12-16 18:06 | NUR ---
waiting for ride. no new complaints
--- NOTE | 2019-12-16 18:18 | NUR ---
dismissed to home with home health with scripts
--- NOTE | 2019-12-18 00:26 | DS ---
DATE OF DISCHARGE: 12/16/2019 PRINCIPAL DIAGNOSIS: Degenerative joint disease, right hip. PROCEDURE: Right total hip arthroplasty. DISPOSITION: Home with home health service. ACTIVITY: Weightbearing as tolerated with standard total hip precautions. Maintain SOO dressing. Follow up with Dr. Keller in 2 weeks. Report any fever, chills, uncontrolled pain, drainage or other abnormalities. DISPOSITION MEDICATIONS: Include oxycodone 5 mg p.o. q. 4 hours p.r.n. pain, Coumadin as directed by anticoagulation clinic. Resume preoperative medications except for Tylenol. BRIEF DESCRIPTION OF HOSPITAL COURSE: The patient underwent an uncomplicated right total hip arthroplasty and had some initial spasm in her buttock postoperative day #1, which resolved with some ongoing management and physical therapy. She was getting up and around reasonably well with ambulation and transfers and was discharged home with home health on postop day #2, having been medically stable throughout her stay. PABLO KELLER MD DR: KIAN/vicki JOB#: [id number] / [id number]
== END 2019-12-16 18:22 | disposition home health service (06) ==
LOC: SURG 07:56 → 4 SOUTHEST 10:05
PROVIDERS: ADMIT Orthopaedic Surgery; ATTEND Orthopaedic Surgery
DX: M16.11 Unilateral primary osteoarthritis, right hip (principal)
CPT/HCPCS: 27130; 36415; 73502; 85014; 85018; 85610; 85730; 86850; 86900; 86901; 88304; 88311; 96365; 96366; 96375; 97150; 97162; 97166; 97530; 97535; A7015; C1713; G0378; G0379; J0171; J0690; J1100; J1170; J1885; J2270; J2405; J2704; J2710; J2795; J3010; J3490; J7030; J7120

== ENCOUNTER → 2020-02-11 | Outpatient (CLI) | payer OTHER ==
[~2020-02-11] MED LIST changes: -DEXAMETHASONE SOD PHOS 20 MG/5 ML VIAL. ONE; -GABAPENTIN 300 MG CAPSULE. PO PRN; -IV RINGERS,LACTATED 1000ML 1,000 ML IV SCH; -LIDOCAINE 2% PF 5 ML VIAL. ONE; -MELOXICAM 7.5 MG TABLET PO PRN; -MORPHINE SULFATE 5 MG, KETOROLAC 30MG VIAL 30 MG, ROPIVacaine 0.5% PF 60 ML, EPINEPHrin... INT ART ONE; -ONDANSETRON PF 4 MG/2 ML VIAL. IV PRN; -ONDANSETRON PF 4 MG/2 ML VIAL. ONE; -PROCHLORPERAZINE 10 MG/2 ML VIAL. IV PRN; -PROPOFOL 10 MG/ML (20ML) VIAL. IV ONE; -ROCURONIUM 50 MG/5 ML VIAL. ONE; -TRANEXAMIC ACID 1,000 MG in IV NORMAL SALINE 50ML 50 ML INJ ONE; +WARF7.5T48 PO
--- NOTE | 2020-02-11 17:26 | KCIC ---
BILATERAL SCREENING MAMMOGRAM History: Routine screening. Comparison: Bilateral mammogram February 09, 2019. Technique: Routine bilateral digital mammogram views were obtained. Findings: Breast Tissue Density B : There are scattered areas of fibroglandular density. Tiny nodular asymmetry in the outer posterior right breast on CC view. Tiny nodular asymmetry in the posterior right breast just inferior to the nipple line on MLO view. These findings are new and could be the same finding. If so likely at the 8:00 C position. There are no dominant masses, suspicious microcalcifications, or architectural distortion. IMPRESSION: There is a tiny new nodular asymmetry in the outer posterior right breast. Recommend further evaluation with spot compression CC and MLO digital views. If finding persists ultrasound is suggested. BI-RADS Category 0: Incomplete: Need additional imaging evaluation. The images were reviewed with computer aided detection. Patient information is entered into the reminder system with a target due date for the next screening mammogram. Mammography is the most sensitive method for finding small breast cancers, but it does not detect them all and is not a substitute for careful clinical examination. A negative mammogram does not negate a clinically suspicious finding and should not result in delay in biopsying a clinically suspicious abnormality. "Our facility is accredited by the [employer] Mammography Program." Electronically signed by: Christopher Boykin MD (02/11/2020 5:23 PM) [facility]
== END | disposition home or self-care (01) ==
LOC: KCIC MAMMO 07:59
PROVIDERS: ATTEND Family Medicine
DX: Z12.31 Encounter for screening mammogram for malignant neoplasm of breast (principal); N64.89 Other specified disorders of breast
CPT/HCPCS: 77067

== ENCOUNTER → 2020-02-29 | Outpatient (CLI) | payer OTHER ==
--- NOTE | 2020-03-02 08:06 | RAD ---
Examination: BREAST RIGHT, DIGITAL DIAGNOSTIC RT History: Reason: ABNORMAL MAMMOGRAM CALLBACK / Spl. Instructions: / History: TECHNIQUE: Digital images of the right breast are obtained for evaluation. Computer aided detection was applied. COMPARISON: 12/22/2013, 01/17/2015, 01/18/2016, 02/03/2017, 02/05/2018, 02/09/2019, 02/11/2020 BREAST PARENCHYMAL DENSITY: B. FINDINGS: Spot compression of the right upper-outer breast were obtained. No definite suspicious asymmetry identified. Mediolateral view is unremarkable. Limited ultrasound imaging of the right breast in the retroareolar region at the upper outer aspect was performed. Ultrasound imaging of the right axilla was performed. No suspicious mass. No suspicious lymph nodes. IMPRESSION: No definite suspicious asymmetry suggested on spot compression imaging. RECOMMENDATION: BI-RADS Category 3-six-month follow-up mammographic examination possible ultrasound recommended to assess stability. Note is made that dense breast parenchyma limits the sensitivity of mammography. Mammography is a sensitive method for finding small breast cancers, but it does not detect them all and is not a substitute for careful clinical examination. A negative mammogram does not negate a clinically suspicious finding and should not result in delay in biopsying a clinically suspicious abnormality. PQRS compliance statement - Patient information was entered into a reminder system with a target due date for the next mammogram. "Our facility is accreditied by the [employer] Mammography Program." Electronically signed by: Caleb Hampton MD (03/02/2020 8:03 AM) [id number]
== END | disposition home or self-care (01) ==
LOC: MAMMO 09:30
PROVIDERS: ATTEND Family Medicine
DX: R92.8 Other abnormal and inconclusive findings on diagnostic imaging of breast (principal)
CPT/HCPCS: 76641; 77065

== ENCOUNTER → 2020-09-20 | Outpatient (CLI) | payer OTHER ==
--- NOTE | 2020-09-25 10:18 | RAD ---
DATE: 09/20/2020 EXAM: MAMMO JAMIE DIAG RT HISTORY: Six-month follow-up of probably benign focal asymmetry on screening mammogram. COMPARISON: 02/29/2020, 02/11/2020 02/09/2019, 02/05/2018 This study was interpreted with the benefit of Computerized Aided Detection (CAD). Breast Density: SCATTERED The breast parenchyma shows scattered fibroglandular densities. Breast parenchyma level B. FINDINGS: No suspicious mass, architectural distortion, or calcifications in the right breast. IMPRESSION: No evidence of malignancy. Recommend annual screening mammogram, which is due in February 2021. BI-RADS CATEGORY: 2 BENIGN FINDING(S) RECOMMENDED FOLLOW-UP: Return to annual screening mammogram, due in February 2021 PQRS compliance statement: Patient information was entered into a reminder system with a target due date for the next mammogram. Mammography is a sensitive method for finding small breast cancers, but it does not detect them all and is not a substitute for careful clinical examination. A negative mammogram does not negate a clinically suspicious finding and should not result in delay in biopsying a clinically suspicious abnormality. "Our facility is accredited by the [employer] Mammography [employer]." ROMULOD
== END ==
LOC: MAMMO 09:57
PROVIDERS: ATTEND Family Medicine
DX: R92.2 Inconclusive mammogram (principal)
CPT/HCPCS: 77065; G0279; 77061

== ENCOUNTER → 2021-02-13 | Outpatient (CLI) | payer OTHER ==
--- NOTE | 2021-02-14 15:45 | RAD ---
DATE: 02/13/2021 EXAM: DIGITAL SCREEN BILAT W/CAD HISTORY: Screening. History of benign right breast biopsy. COMPARISON: Multiple prior exams dating back to 2016 This study was interpreted with the benefit of Computerized Aided Detection (CAD). Breast Density: SCATTERED The breast parenchyma shows scattered fibroglandular densities. Breast parenchyma level B. FINDINGS: No mass, suspicious calcification, or architectural distortion in either breast. IMPRESSION: No evidence of malignancy. BI-RADS CATEGORY: 1 NEGATIVE RECOMMENDED FOLLOW-UP: 12M 12 MONTH FOLLOW-UP PQRS compliance statement: Patient information was entered into a reminder system with a target due date for the next mammogram. Mammography is a sensitive method for finding small breast cancers, but it does not detect them all and is not a substitute for careful clinical examination. A negative mammogram does not negate a clinically suspicious finding and should not result in delay in biopsying a clinically suspicious abnormality. "Our facility is accredited by the [employer] Mammography [employer]."
== END ==
LOC: MAMMO 12:46
PROVIDERS: ATTEND Family Medicine
DX: Z12.31 Encounter for screening mammogram for malignant neoplasm of breast (principal)
CPT/HCPCS: 77067

== ENCOUNTER → 2021-06-22 | Day surgery (SDC) | payer OTHER ==
[~2021-06-22] VITALS: Ht 162.6 cm; Wt 92.0 kg
[~2021-06-22] MED LIST changes: +IV RINGERS,LACTATED 1000ML 1,000 ML IV SCH; +LIDOCAINE 2% PF 5 ML VIAL. ONE; +PROPOFOL 10 MG/ML (20ML) VIAL. IV ONE
[2021-06-22 07:43] VITALS: BP 110/70
[2021-06-22 09:17] VITALS: BP 128/66
--- NOTE | 2021-06-23 00:41 | CONS ---
DATE OF CONSULTATION: 06/22/2021 UPDATED HISTORY AND PHYSICAL REFERRING PHYSICIAN: Joseline Pond DO. REASON: Colorectal screening. HISTORY OF PRESENT ILLNESS: A 60-year-old female whose past medical history is significant for osteoarthrosis, is seen for screening colon exam. Last exam was performed in 2010 without abnormality. Stools are formed and regular without diarrhea, constipation, melena and/or hematochezia. Weight and appetite are stable. She is otherwise without additional complaints. PAST MEDICAL HISTORY: Osteoarthrosis. ALLERGIES: BENZALKONIUM CHLORIDE. MEDICATIONS: Include multivitamins. FAMILY HISTORY/SOCIAL HISTORY: She is a nonsmoker, social drinker. PAST SURGICAL HISTORY: Status post cholecystectomy, status post joint replacement. REVIEW OF SYSTEMS: Per records. PHYSICAL EXAMINATION: GENERAL: Reveals a well-nourished, well-developed female, who is alert, cooperative, in no acute distress. VITAL SIGNS: Temperature is 97.1, pulse 82, respiratory rate 20. LUNGS: Clear. CARDIOVASCULAR: Reveals an S1, S2, without S3, S4 or appreciable murmur. ABDOMEN: Reveals a soft abdomen, normal bowel sounds, without appreciable hepatosplenomegaly. IMPRESSION AND PLAN: Colorectal screening is warranted at this time. Risks and benefits of procedure including risk of hemorrhage and perforation with operation were discussed. The patient is willing to proceed. IRENE/EMMA DR: Sandor TID: [id number]
--- NOTE | 2021-06-26 09:08 | PATHOLOGY ---
[facility] Accession Number: [id number] . 01 Material submitted: . sigmoid colon - SIGMOID POLYPECTOMY BIOPSY . 01 Clinical history: . CRC SCREENING COLONOSCOPY . 02 Diagnosis: Colonic mucosa, sigmoid colon polypectomy: - Tubular adenoma. . ([facility]:mm; 06/25/2021) [facility] 06/25/2021 1202 Local . 02 Comment: There is no high grade dysplasia or evidence of malignancy. . ([facility]:mml; 06/25/2021) . 02 Electronically signed: . Salvador Lao MD, Pathologist NPI- [id number] . 01 Gross description: . Received in formalin labeled "Laura Foreman, sigmoid polypectomy BX" is a negron-brown nodular mucosal polyp measuring 1.2 x 0.8 x 0.4 cm. The margin is inked and the specimen is trisected and submitted in A1. ([facility] [place]; 06/24/2021) [facility] 06/24/2021 0907 Local . 02 Pathologist provided ICD-10: D12.5 . 02 CPT . 565369 Specimen Comment: A courtesy copy of this report has been sent to [phone], [phone] Specimen Comment: [id number] Specimen Comment: Report sent to / DR TATE Performed at: 01 [facility] [address], [place] [id number] MD Sam Mirza MD Phone: [phone] Performed at: 02 [facility] [address] [place], [place] [id number] MD Salvador Lao MD Phone: [phone]
== END | disposition home or self-care (01) ==
LOC: ENDOS 07:12
PROVIDERS: ATTEND Internal Medicine Gastroenterology
DX: Z12.11 Encounter for screening for malignant neoplasm of colon (principal); K64.0 First degree hemorrhoids; D12.5 Benign neoplasm of sigmoid colon; K63.89 Other specified diseases of intestine; M19.90 Unspecified osteoarthritis, unspecified site; K21.9 Gastro-esophageal reflux disease without esophagitis; Z90.49 Acquired absence of other specified parts of digestive tract; Z98.890 Other specified postprocedural states; Z79.899 Other long term (current) drug therapy; Z72.89 Other problems related to lifestyle; Z88.8 Allergy status to other drugs, medicaments and biological substances
CPT/HCPCS: 45385; 88305; J2704